=== PATIENT | male | born 1960 | race Caucasian/White ===

== ENCOUNTER 2018-06-07 16:45 | Emergency (ER) | payer OTHER, MEDICAID, SELFPAY ==
[2018-06-07 16:49] VITALS: BP 119/85; PULSE 102; RESP 17; TEMP 36.8; O2SAT 99
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
--- NOTE | 2018-06-07 18:36 | DI.RAD.S_ITS ---
PROCEDURE: XR RIBS RT MIN 3V W CXR 1V INDICATIONS: Pain to right posterior lower rib cage after ground level fa TECHNIQUE: 2 views of the right ribs were acquired, along with a single view chest. COMPARISON: None. FINDINGS: Surgical changes and devices: None. Bones and chest wall: There are displaced fractures of the posterior right 10th and 11th ribs Lungs and pleura: No pleural effusions or pneumothorax. Patchy bibasilar atelectasis. Mediastinum: Mediastinal contours appear normal. Heart size is normal. IMPRESSION: 1. Displaced fractures of the posterior right 10th and 11th ribs. 2. Patchy bibasilar atelectasis. Dictated by: Farrukh Liu M.D. on 06/07/2018 at 19:02 Approved by: Farrukh Liu M.D. on 06/07/2018 at 19:04
--- NOTE | 2018-06-07 18:36 | DI.RAD.S_ITS ---
PROCEDURE: XR LUMBAR SPINE 2-3V INDICATIONS: glf with pain to right lumbar region TECHNIQUE: 3 views of the lumbar spine were acquired. COMPARISON: None. FINDINGS: Bones: 5 [id number] vertebrae are present. There is normal bony alignment. No vertebral body compression fractures. No suspicious bony lesions. Lower lumbar degenerative disc space loss and facet hypertrophy. Soft tissues: Overlying bowel gas pattern is normal. No suspicious soft tissue calcifications. IMPRESSION: 1. No evidence acute compression fracture. 2. Lower lumbar degenerative disc disease and facet arthropathy. Dictated by: Farrukh Liu M.D. on 06/07/2018 at 19:05 Approved by: Farrukh Liu M.D. on 06/07/2018 at 19:05
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
[2018-06-07] MEDS: HYDROCODONE/ACET 5/325 TABLET 1 TAB PO (20:08)
== END 2018-06-07 21:01 | disposition home or self-care (01) ==
PROVIDERS: Emergency Provider Nurse Practitioner Family
DX: S22.41XA Multiple fractures of ribs, right side, initial encounter for closed fracture (principal); W18.30XA Fall on same level, unspecified, initial encounter
CPT/HCPCS: 71101; 72100; 99282; 99283